=== PATIENT | female | born 1950 | race African-American/Black ===

== ENCOUNTER → 2016-11-09 | Outpatient (CLI) | payer OTHER ==
[~2016-11-09] MED LIST: ACETAMINOPHEN325 M1 PO; GLUCOPHAGE500 MG PO; HYDROCHLOROTH12.5 MG PO; HYDROXYZINE HCL25 M1 PO; LISINOPRIL20 MG PO; MOBIC15 MG PO; NASCOBAL2.3 ML NS; OLANZAPINE10 MG PO; ONDANSETRON ODT4 MG PO; TOPROL XL50 MG PO; TRIAMCINOLONE A80 G2; VITAMIN D 5050000 I1 PO
== END ==
LOC: RAD 02:59
DX: Z12.31 Encounter for screening mammogram for malignant neoplasm of breast (principal)